=== PATIENT | female | born 1955 | race American Indian/Alaskan Native ===

== ENCOUNTER 2018-11-29 08:05 | Emergency (ER) | payer MEDICARE ==
[2018-11-29] MEDS ORDERED: TYLENOL PO ONE (10:59)
[2018-11-29] MEDS ORDERED: TORADOL IM ONE (10:59)
--- NOTE | 2018-11-29 10:59 | Emergency Department Report ---
ED ENT HPI - General Chief complaint: Earache Stated complaint: headache,ear infections Time Seen by Provider: 11/29/18 10:51 Source: patient, RN notes reviewed Mode of arrival: Ambulatory Limitations: No Limitations - History of Present Illness Initial comments: This is a 63-year-old female, who typically follows at the [facility], has a history of high cholesterol and hypothyroidism, presenting to the emergency room with one complaint of nontraumatic left sided ear pain. This discomfort started 1 week ago after using natural hair dye. Her pain is described as burning, aching, sharp, increases with palpation and decreases with rest. She also has left-sided headache The ear discomfort, which is present for one week, nontraumatic, not sudden or thunderclap in nature, not maximal intensity, and not the most intense headache of her life. She denies blurry vision, tinnitus, vertigo, change in auditory acuity. She further reports that she was seen in an outpatient urgent care center yesterday, started on Keflex. She took 650 mg of acetaminophen yesterday, with minimal improvement in symptoms. There is no neck pain or neck stiffness, there is no chest pain, there is no abdominal pain, there is no shortness of breath. MD complaint: ear pain -: Gradual, days(s), week(s) (1) Location: L ear Severity: moderate Quality: aching Consistency: constant Improves with: rest Worsens with: position, movement Context- Dental: other - Related Data Home Medications Medication Instructions Recorded Confirmed Last Taken AtorvaSTATin 40 mg PO DAILY 11/29/18 11/29/18 11/28/18 Cephalexin [Keflex] 500 mg PO BID 11/29/18 11/29/18 11/28/18 Gabapentin Enacarbil [Horizant] 600 mg PO TID 11/29/18 11/29/18 11/27/18 Levothyroxine [Synthroid] 100 mcg PO QAM 11/29/18 11/29/18 11/28/18 Previous Rx's Medication Instructions Recorded Last Taken Type Acetaminophen [Tylenol Arthritis] 650 mg PO Q6HR PRN #30 tablet.er 11/29/18 Unknown Rx Ibuprofen [Motrin] 600 mg PO Q8H PRN #30 tablet 11/29/18 Unknown Rx Allergies Allergy/AdvReac Type Severity Reaction Status Date / Time No Known Allergies Allergy Unverified 08/21/14 13:16 ED Dental HPI - General Chief complaint: Earache Stated complaint: headache,ear infections Time Seen by Provider: 11/29/18 10:51 Source: patient Mode of arrival: Ambulatory Limitations: No Limitations - Related Data Home Medications Medication Instructions Recorded Confirmed Last Taken AtorvaSTATin 40 mg PO DAILY 11/29/18 11/29/18 11/28/18 Cephalexin [Keflex] 500 mg PO BID 11/29/18 11/29/18 11/28/18 Gabapentin Enacarbil [Horizant] 600 mg PO TID 11/29/18 11/29/18 11/27/18 Levothyroxine [Synthroid] 100 mcg PO QAM 11/29/18 11/29/18 11/28/18 Previous Rx's Medication Instructions Recorded Last Taken Type Acetaminophen [Tylenol Arthritis] 650 mg PO Q6HR PRN #30 tablet.er 11/29/18 Unknown Rx Ibuprofen [Motrin] 600 mg PO Q8H PRN #30 tablet 11/29/18 Unknown Rx Allergies Allergy/AdvReac Type Severity Reaction Status Date / Time No Known Allergies Allergy Unverified 08/21/14 13:16 ED Review of Systems ROS: Stated complaint: headache,ear infections Other details as noted in HPI Constitutional: denies: fever, malaise Eyes: denies: eye discharge, vision change ENT: ear pain. denies: throat pain, dental pain, hearing loss, epistaxis, congestion Respiratory: denies: cough Cardiovascular: denies: chest pain Gastrointestinal: denies: abdominal pain Neurological: headache. denies: weakness, numbness, paresthesias, confusion, abnormal gait, vertigo ED Past Medical Hx - Past Medical History Previous Medical History?: Yes Hx of Cancer: Yes (Thyroid) Additional medical history: thyroid cancer, fibromyalgia - Surgical History Past Surgical History?: Yes Additional Surgical History: Thyroid removed - Social History Smoking Status: Current Every Day Smoker Substance Use Type: Alcohol, Prescribed - Medications Home Medications: Home Medications Medication Instructions Recorded Confirmed Last Taken Type Acetaminophen [Tylenol Arthritis] 650 mg PO Q6HR PRN #30 tablet.er 11/29/18 Unknown Rx AtorvaSTATin 40 mg PO DAILY 11/29/18 11/29/18 11/28/18 History Cephalexin [Keflex] 500 mg PO BID 11/29/18 11/29/18 11/28/18 History Gabapentin Enacarbil [Horizant] 600 mg PO TID 11/29/18 11/29/18 11/27/18 History Ibuprofen [Motrin] 600 mg PO Q8H PRN #30 tablet 11/29/18 Unknown Rx Levothyroxine [Synthroid] 100 mcg PO QAM 11/29/18 11/29/18 11/28/18 History ED Physical Exam - General Limitations: No Limitations General appearance: alert, in no apparent distress - Head Head exam: Present: atraumatic, normocephalic - Eye Eye exam: Present: normal appearance, PERRL, EOMI, other (visual acuity intact to finger counting, color perception, reading at a close distance). Absent: nystagmus - ENT ENT exam: Present: normal exam, normal orophraynx, mucous membranes moist, normal external ear exam, other (there is no sinus tenderness. There is no mastoid tenderness. There is no temporal tenderness. There are no vesicular lesions noted.). Absent: TM's normal bilaterally (right tympanic membrane appears to be clear. Left tympanic membrane appears to be opacified.) - Neck Neck exam: Present: normal inspection, full ROM. Absent: tenderness, meningismus - Respiratory Respiratory exam: Present: normal lung sounds bilaterally. Absent: respiratory distress - Cardiovascular Cardiovascular Exam: Present: regular rate, normal rhythm, normal heart sounds. Absent: bradycardia, tachycardia, irregular rhythm, systolic murmur, diastolic murmur, rubs, gallop - GI/Abdominal GI/Abdominal exam: Present: soft. Absent: distended, tenderness, guarding, rebound, rigid, pulsatile mass - Extremities Exam Extremities exam: Present: normal inspection, full ROM, other (2+ pulses noted in the bilateral upper extremities. 5 out of 5 strength in 4 extremities. Moving 4 extremities spontaneously.) - Back Exam Back exam: Present: normal inspection, full ROM - Neurological Exam Neurological exam: Present: alert, oriented X3, other (there is no facial droop. The tongue is midline. Extraocular movements are intact bilaterally. 5 out of 5 strength in 4 extremities.) - Psychiatric Psychiatric exam: Present: normal affect, normal mood - Skin Skin exam: Present: warm, dry, intact, normal color. Absent: rash ED Course Vital Signs 01/05/19 01/05/19 01/05/19 08:26 11:14 11:16 Temperature 97.8 F Pulse Rate 67 Respiratory 18 18 18 Rate Blood Pressure 135/95 O2 Sat by Pulse 100 Oximetry ED Medical Decision Making - Lab Data Vital Signs 11/29/18 11/29/18 11/29/18 08:26 11:14 11:16 Temperature 97.8 F Pulse Rate 67 Respiratory 18 18 18 Rate Blood Pressure 135/95 O2 Sat by Pulse 100 Oximetry 11/29/18 11:46 Temperature Pulse Rate Respiratory 18 Rate Blood Pressure O2 Sat by Pulse Oximetry - Medical Decision Making Differential diagnosis, including not limited to: Otitis media, otitis externa, adverse reaction from hair chemicals Assessment and plan: 63-year-old female with 1 week of otic discomfort, scalp discomfort, head discomfort, in the context of new hair products. Patient afebrile with reassuring vital signs, with no evidence of mastoiditis, given lack of mastoid tenderness, no evidence of external cellulitis or otitis ex terna, no trismus or malocclusion, protecting her airway, with a nonfocal neurologic examination, and left-sided opacified tympanic membrane. Does not appear to be an emergent medical condition at this time. The patient is medically suitable to follow-up in outpatient primary care doctor or restaurant hospitality manager. She is counseled to avoid submersion, to avoid Q-tips, to avoid hair products that she used, she was given instructions that she may continue antibiotics, to alternate ibuprofen, acetaminophen for pain as needed, she is medically suitable to follow up with an outpatient restaurant hospitality manager. Critical care attestation.: If time is entered above; I have spent that time in minutes in the direct care of this critically ill patient, excluding procedure time. ED Disposition Clinical Impression: Otalgia of left ear Disposition: DC-01 TO HOME OR SELFCARE Is pt being admited?: No Does the pt Need Aspirin: No Condition: Stable Additional Instructions: Take medications as needed/directed. Avoid submersion of the head, ear , did not insert Q-tips or foreign bodies into the ear, and avoid the hair product that was used prior to the initiation of symptoms. Follow up with either of the listed otolaryngology ENT doctors within the next 7-10 days. Return to the ER right away with lethargy, irritability, projectile vomiting, change in mental status, confusion, inability to speak, inability to breathe, loss of vision, confusion, change in mental status, new, worsening or different symptoms not present on the initial emergency room evaluation. Referrals: JARVIS SOSA MD [Staff Physician] - 7-10 days ARRON RODRIGUEZ MD [Staff Physician] - 7-10 days
[2018-11-29 12:11] VITALS: BP 153/71
== END 2018-11-29 12:06 | disposition home or self-care (01) ==
LOC: ED 08:05
DX: H92.02 Otalgia, left ear (principal)
CPT/HCPCS: 96372; 99282; J1885

== ENCOUNTER 2020-09-06 18:32 | Emergency (ER) | payer MEDICARE ==
[2020-09-06] MEDS ORDERED: ASPIRIN 325 MG TAB PO ONE (18:46)
[2020-09-06 19:13] LABS: Basophils % (Auto) 0.4 % (0.0-1.8); Eosinophils # (Auto) 0.1 K/mm3 (0.0-0.4); Eosinophils % (Auto) 1.5 % (0.0-4.3); Hematocrit 39.8 % (30.3-42.9); Hemoglobin 12.9 gm/dl (10.1-14.3); Lymphocytes # (Auto) 2.6 K/mm3 (1.2-5.4); Lymphocytes % (Auto) 50.4 % (13.4-35.0); Mean Corpuscular HGB Conc 32 % (30-34); Mean Corpuscular Volume 86 fl (79-97); Monocytes # (Auto) 0.4 K/mm3 (0.0-0.8); Platelet Count 299 K/mm3 (140-440); Red Blood Count 4.64 M/mm3 (3.65-5.03); Red Cell Distribution Width 14.2 % (13.2-15.2)
[2020-09-06 19:30] LABS: BUN/Creatinine Ratio 9; Blood Urea Nitrogen 7 mg/dL (7-17); Calcium 9.3 mg/dL (8.4-10.2); Hemolysis Index 8
--- NOTE | 2020-09-06 20:21 | XRay Report ---
CHEST 2 VIEWS INDICATION / CLINICAL INFORMATION: Chest Pain. Shortness of breath COMPARISON: 03/18/2008 FINDINGS: SUPPORT DEVICES: None. HEART / MEDIASTINUM: No significant abnormality. LUNGS / PLEURA: No significant pulmonary or pleural abnormality. .No pneumothorax. ADDITIONAL FINDINGS: No significant additional findings. IMPRESSION: 1. No acute findings. Signer Name: Gage Hinojosa MD Signed: 09/06/2020 8:16 PM Workstation Name: [id number]
--- NOTE | 2020-09-07 00:35 | Emergency Department Report ---
ED General Adult HPI - General Chief complaint: Chest Pain Stated complaint: ABDNORMAL EKG SENT FROM [facility] PUI?: No Time Seen by Provider: 09/07/20 00:18 Source: patient, RN notes reviewed, old records reviewed Mode of arrival: Ambulatory Limitations: No Limitations - History of Present Illness Initial comments: The patient was evaluated in the emergency department for symptoms described in the history of present illness. He/she was evaluated in the context of the global COVID-19 pandemic, which necessitated consideration that the patient might be at risk for infection with the virus that causes COVID-19. Instit utional protocols and algorithms that pertain to the evaluation of patients at risk for COVID-19 are in a state of rapid change based on information released by regulatory bodies including the CDC and federal and state organizations. These policies and algorithms were followed during the patient's care in the emergency department. Please note that these policies, procedures and recommendations changed on a rapid basis. Patient is a 64-year-old female. She is not known to myself previously. She does not have a local primary care doctor. Her past medical history includes thyroidectomy, and tobacco consumption. Patient states that in mid July of this year, she was perfectly healthy, with no medical complaints, and her son unexpectedly had a hemorrhagic stroke secondary to aneurysmal bleed. He was initially seen at a local hospital, and transferred out to a tertiary care hospital. She reports that this current crisis has been very distressing to her, and since mid July, approximately August 23, since her son became ill, she has developed central nonradiating, nonexertional nontraumatic central chest pinching and pain, which does not radiate to the back, arms or n derek, without vomiting, diaphoresis or exertional shortness of breath. She denies DVT and pulmonary embolism risk factors. She denies family history of ischemic heart disease/pulmonary embolism that she is aware of, although she reports that her mother had "pacemaker." She reports that she occasionally gets "so upset that it takes my breath away." However, she does not have exertional shortness of breath. At the moment, the patient is pain-free. She denies other physical pain, and she reports that she is mildly anxious. Patient states that she sought medical evaluation at a local urgent care center "to get it checked out", and was sent to this emergency room because of an abnormal EKG. -: Gradual, week(s) Location: chest Radiation: non-radiation Quality: other (Pinching and burning) Consistency: intermittent Improves with: none Worsens with: other (Worsens when the patient thinks about her sick family me mbniko) - Related Data Home Medications Medication Instructions Recorded Confirmed Last Taken AtorvaSTATin 40 mg PO DAILY 11/29/18 11/29/18 11/28/18 Cephalexin [Keflex] 500 mg PO BID 11/29/18 11/29/18 11/28/18 Gabapentin Enacarbil [Horizant] 600 mg PO TID 11/29/18 11/29/18 11/27/18 Levothyroxine [Synthroid] 100 mcg PO QAM 11/29/18 11/29/18 11/28/18 Previous Rx's Medication Instructions Recorded Last Taken Type Acetaminophen [Tylenol Arthritis] 650 mg PO Q6HR PRN #30 tablet.er 11/29/18 Unknown Rx Aspirin [Aspirin BABY CHEW TAB] 81 mg PO QDAY #30 tab.chew 09/07/20 Unknown Rx Famotidine [Pepcid] 20 mg PO QDAY #30 tablet 09/07/20 Unknown Rx Allergies Allergy/AdvReac Type Severity Reaction Status Date / Time No Known Allergies Allergy Verified 09/07/20 00:22 ED Review of Systems ROS: Stated complaint: ABDNORMAL EKG SENT FROM [facility] Other details as noted in HPI Comment: All other systems reviewed and negative Cardiovascular: chest pain Psychiatric: anxiety ED Past Medical Hx - Past Medical History Previous Medical History?: Yes Additional medical history: thyroid cancer, fibromyalgia - Surgical History Past Surgical History?: Yes Additional Surgical History: Thyroid removed - Social History Smoking Status: Current Every Day Smoker Substance Use Type: Alcohol, Prescribed - Medications Home Medications: Home Medications Medication Instructions Recorded Confirmed Last Taken Type Acetaminophen [Tylenol Arthritis] 650 mg PO Q6HR PRN #30 tablet.er 11/29/18 Unknown Rx AtorvaSTATin 40 mg PO DAILY 11/29/18 11/29/18 11/28/18 History Cephalexin [Keflex] 500 mg PO BID 11/29/18 11/29/18 11/28/18 History Gabapentin Enacarbil [Horizant] 600 mg PO TID 11/29/18 11/29/18 11/27/18 History Levothyroxine [Synthroid] 100 mcg PO QAM 11/29/18 11/29/18 11/28/18 History Aspirin [Aspirin BABY CHEW TAB] 81 mg PO QDAY #30 tab.chew 09/07/20 Unknown Rx Famotidine [Pepcid] 20 mg PO QDAY #30 tablet 09/07/20 Unknown Rx ED Physical Exam - General Limitations: No Limitations General appearance: alert, in no apparent distress - Head Head exam: Present: atraumatic, normocephalic - Eye Eye exam: Present: normal appearance, EOMI. Absent: nystagmus - ENT ENT exam: Present: normal exam, normal orophraynx, mucous membranes moist, normal external ear exam - Neck Neck exam: Present: normal inspection, full ROM. Absent: tenderness, meningismus - Respiratory Respiratory exam: Present: normal lung sounds bilaterally, chest wall tenderness. Absent: respiratory distress, wheezes, rales, rhonchi, stridor, decreased breath sounds - Cardiovascular Cardiovascular Exam: Present: regular rate, normal rhythm, normal heart sounds. Absent: bradycardia, tachycardia, irregular rhythm, systolic murmur, diastolic murmur, rubs, gallop - GI/Abdominal GI/Abdominal exam: Present: soft. Absent: distended, tenderness, guarding, rebound, rigid, pulsatile mass - Extremities Exam Extremities exam: Present: normal inspection, full ROM, other (2+ pulses noted in the bilateral upper and lower extremities. There is no palpable cord. negative Homans sign. Muscular compartments are soft. The pelvis is stable.). Absent: pedal edema, calf tenderness - Back Exam Back exam: Present: normal inspection, full ROM. Absent: tenderness, CVA tend erness (R), CVA tenderness (L), paraspinal tenderness, vertebral tenderness - Neurological Exam Neurological exam: Present: alert, oriented X3, normal gait, other (No facial droop. Tongue midline. Extraocular movements intact bilaterally. Facial sensation intact to light touch in V1, V2, V3 distribution bilaterally. 5 and a 5 strength in 4 extremities. Sensation intact to light touch in 4 extremities.). Absent: motor sensory deficit - Psychiatric Psychiatric exam: Present: anxious - Skin Skin exam: Present: warm, dry, intact, normal color. Absent: rash ED Course Vital Signs 09/06/20 18:38 Temperature 98.4 F Pulse Rate 85 Respiratory 20 Rate Blood Pressure 142/92 O2 Sat by Pulse 99 Oximetry ED Medical Decision Making - Lab Data Result diagrams: 09/06/20 18:52 09/06/20 18:52 Vital Signs 09/06/20 18:38 Temperature 98.4 F Pulse Rate 85 Respiratory 20 Rate Blood Pressure 142/92 O2 Sat by Pulse 99 Oximetry Lab Results 09/06/20 09/06/20 09/06/20 Range/Units 18:52 18:52 21:50 WBC 5.2 (4.5-11.0) K/mm3 RBC 4.64 (3.65-5.03) M/mm3 Hgb 12.9 (10.1-14.3) gm/dl Hct 39.8 (30.3-42.9) % MCV 86 (79-97) fl MCH 28 (28-32) pg MCHC 32 (30-34) % RDW 14.2 (13.2-15.2) % Plt Count 299 (140-440) K/mm3 Lymph % (Auto) 50.4 H (13.4-35.0) % [place] % (Auto) 7.0 (0.0-7.3) % Eos % (Auto) 1.5 (0.0-4.3) % Baso % (Auto) 0.4 (0.0-1.8) % Lymph # (Auto) 2.6 (1.2-5.4) K/mm3 [place] # (Auto) 0.4 (0.0-0.8) K/mm3 Eos # (Auto) 0.1 (0.0-0.4) K/mm3 Baso # (Auto) 0.0 (0.0-0.1) K/mm3 Seg Neutrophils % 40.7 (40.0-70.0) % Seg Neutrophils # 2.1 (1.8-7.7) K/mm3 Sodium 141 (137-145) mmol/L Potassium 3.7 (3.6-5.0) mmol/L Chloride 105.1 (98-107) mmol/L Carbon Dioxide 21 L (22-30) mmol/L Anion Gap 19 mmol/L BUN 7 (7-17) mg/dL Creatinine 0.8 (0.6-1.2) mg/dL Estimated GFR > 60 ml/min BUN/Creatinine Ratio 9 % Glucose 123 H (65-100) mg/dL Calcium 9.3 (8.4-10.2) mg/dL Troponin T < 0.010 < 0.010 (0.00-0.029) ng/mL - EKG Data 09/07/20 00:36 Prehospital EKG demonstrates a sinus rhythm, 83 bpm, left axis deviation, left anterior fascicular block, IL interval, QTC within normal limits, motion artifact, the EKG is abnormal, the EKG is not a STEMI, there is no prior EKG available for comparison. ER EKG #1 shows a sinus rhythm, 87 bpm, left axis deviation, left anterior fascicular block, QTC 482 ms, borderline left ventricular hypertrophy, the EKG is abnormal. The EKG is not a STEMI. The ER EKG is unchanged from prehospital EKG - Radiology Data Radiology results: report reviewed, image reviewed X-ray of the chest is negative for acute findings. - Medical Decision Making Differential diagnosis, including but not limited to: GERD, gastritis, hiatal hernia, pneumonia, costochondritis, anxiety, grief reaction, coronary artery disease Assessment and plan: 64-year-old female, who is afebrile, with reassuring vital signs, who is not tachycardic, tachypneic or hypoxic, who denies DVT, pulmonary embolism risk factors, who is low risk by Wells criteria for pulmonary embolism, with a few weeks of intermittent chest pain, in the context of a sick family member. EKG unchanged x3, troponin negative x2. Patient's age and cardiovascular risk factor profile are reviewed and appreciated, however, given duration of symptoms in context of symptoms, I think acute ischemic heart disease is unlikely. Her heart score is reviewed and appreciated. Patient and I had an extensive discussion regarding various strategies for cardiac risk ratification. Patient was offered hospitalization/admission for cardiac risk ratification versus close outpatient cardiology follow-up for outpatient risk ratification. Patient declines to be admitted to the hospital, out of concern for COVID-19, DVT, infectious diarrhea, and reports that she would much prefer to follow-up as an outpatient. Her facesheet and demographic information are transmitted to our local cardiology group, [facility] cardiology, where the patient should be able to receive close outpatient follow-up to complete a cardiac risk ratification. Therefore, the patient and I will plan to discharge her to follow-up with outpatient cardiology, through shared decision-making, to follow-up with outpatient cardiology and complete a cardiac risk ratification. Patient states that she is reliable to follow-up, and return if she worsens. Critical care attestation.: If time is entered above; I have spent that time in minutes in the direct care of this critically ill patient, excluding procedure time. ED Disposition Clinical Impression: Abnormal EKG, History of chest pain Disposition: TO HOME OR SELFCARE Is pt being admited?: No Does the pt Need Aspirin: No Condition: Stable Additional Instructions: Minimize/avoid consumption of Motrin, ibuprofen, Naprosyn, Aleve, heavy spicy foods, tobacco, smoke products and alcohol. Take the aspirin and Pepcid medications as directed, follow-up with a plant operations worker, within the next 3 to 5 days. For the patient's convenience, numerous local cardiologists have been listed for her to follow-up with. We recommend that the patient contact any of the listed local cardiology groups, let them know that the patient was seen here in the emergency room for chest discomfort, and that we would like to have the patient followed up with outpatient cardiology for stress test/outpatient cardiac risk ratification. In addition, patient's demographic information has been transmitted/faxed to [facility] cardiology, so they should be contacting the patient to arrange close outpatient follow-up, but we do recommend that the patient call on her own to ensure close follow-up. Please return to the emergency room right away with new pain, worsening, migration of pain, projectile vomiting, change in mental status, confusion, inability to tolerate liquid feeds, new, worsened or different symptoms not present on the initial emergency room evaluation. Referrals: NEETU ESTES MD [Staff Physician] - 3-5 Days CHERYL HEAD MD [Staff Physician] - 3-5 Days [facility] [Provider Group] - 3-5 Days [facility] [Provider Group] - 3-5 Days
[2020-09-07 00:46] VITALS: BP 146/92
== END 2020-09-07 00:56 | disposition home or self-care (01) ==
LOC: ED 18:32
DX: R94.31 Abnormal electrocardiogram [ECG] [EKG] (principal); F17.200 Nicotine dependence, unspecified, uncomplicated; Z87.898 Personal history of other specified conditions; Z98.890 Other specified postprocedural states
CPT/HCPCS: 36415; 71046; 80048; 84484; 85025; 93005